=== PATIENT | male | born 1975 | race Caucasian/White ===

== ENCOUNTER 2016-10-22 18:30 | Emergency (ER) | payer OTHER ==
[~2016-10-22] VITALS: Ht 167.6 cm; Wt 65.8 kg
[~2016-10-22 18:30] MED LIST: TRAZ-144 PO
[2016-10-22 19:08] VITALS: BP 121/83
== END 2016-10-22 19:40 | disposition home or self-care (01) ==
LOC: ER 18:32
DX: M79.672 Pain in left foot (principal); M79.671 Pain in right foot; M25.572 Pain in left ankle and joints of left foot; M25.571 Pain in right ankle and joints of right foot; I87.2 Venous insufficiency (chronic) (peripheral); F32.9 Major depressive disorder, single episode, unspecified; F10.10 Alcohol abuse, uncomplicated; F17.210 Nicotine dependence, cigarettes, uncomplicated; Z72.0 Tobacco use
CPT/HCPCS: 99282; A4606; Z7610

== ENCOUNTER 2017-05-29 14:12 | Emergency (ER) | payer OTHER ==
[~2017-05-29] VITALS: Ht 170.2 cm; Wt 71.2 kg
--- NOTE | 2017-05-29 14:20 | NUR ---
[facility], C/O DIFFUSED CP, NON RADIATING X 3 DAYS. STATING "I'M JUST FEELING SUICIDAL RIGHT NOW" DENIES ANY PLAN. A/OX 4. BREATHING EVEN AND UNLABORED. NO SOB. VITALS STABLE. SAFETY AND COMFORT MEASURES IN PLACE. AWAITING MD ORDERS .
--- NOTE | 2017-05-29 14:30 | NUR ---
WINDOW SHADE CUTTER AND MOUNTER AT BEDSIDE FOR BLOOD DRAW.
[2017-05-29 14:40] LABS: BASOPHILS % (AUTO) 0.5 % (0.0-2.0); EOSINOPHILS % (AUTO) 0.3 % (0.0-6.0); HEMATOCRIT 37 % (39-51); HEMOGLOBIN 12.2 g/dL (13.5-17.5); LYMPHOCYTES # (AUTO) 1.7 /CMM (0.8-4.8); LYMPHOCYTES % (AUTO) 27.3 % (20.0-44.0); MEAN CORPUSCULAR HEMOGLOBIN 27 PG (26.0-33.0); MEAN CORPUSCULAR HGB CONC 33 g/dl (31.0-36.0); MEAN CORPUSCULAR VOLUME 82 fL (80-96); MONOCYTES # (AUTO) 0.5 /CMM (0.1-1.30); NEUTROPHILS # (AUTO) 4.1 /CMM (1.8-8.9); NEUTROPHILS % (AUTO) 63.9 % (43.0-81.0); PLATELET COUNT (AUTO) 234 /CMM (150-450); RDW COEFFICIENT OF VARIATION 15.1 (11.5-15.0); RED BLOOD CELL COUNT(AUTO) 4.53 MIL/uL (4.5-6.0); WHITE BLOOD COUNT (AUTO) 6.4 K/uL (4.3-11.0)
[2017-05-29 14:41] LABS: CALCIUM, SERUM 8.2 mg/dL (8.5-10.1); CARBON DIOXIDE 24 mmol/L (21-32); CHLORIDE 99 mmol/L (98-107); CREATININE 0.8 mg/dL (0.6-1.3); GLUCOSE 126 mg/dL (74-106); POTASSIUM 3.5 mmol/L (3.5-5.1); SODIUM SERUM 136 mmol/L (136-145); UREA NITROGEN, BLOOD 6 mg/dL (7-18)
[2017-05-29] MEDS ORDERED: LORA2TAB PO (14:44)
[2017-05-29] MEDS ORDERED: QUET300T2 PO (14:44)
[2017-05-29] MEDS ORDERED: DIVA500T2 PO (14:44)
[2017-05-29 14:49] LABS: ACETAMINOPHEN 0 ug/ml (10-30); ALANINE AMINOTRANSFERASE 41 U/L (12-78); ALBUMIN 3.9 g/dL (3.4-5.0); ALCOHOL, BLOOD 419 mg/dL (0-0); ALKALINE PHOSPHATASE 124 U/L (46-116); ASPARTATE AMINOTRANSFERASE 50 U/L (15-37); BILIRUBIN,DIRECT 0.1 mg/dL (0.0-0.2); BILIRUBIN,TOTAL 0.4 mg/dL (0.2-1.0); SALICYLATE 1.8 mg/dL (2.8-20.0); TOTAL PROTEIN, SERUM 7.5 g/dL (6.4-8.2); TROPONIN I < 0.017 ng/mL (0.00-0.056)
--- NOTE | 2017-05-29 15:05 | NUR ---
URINE OBTAINED AND SENT TO LAB.
[2017-05-29 15:22] LABS: APPEARANCE,URINE CLEAR (CLEAR); BILIRUBIN,URINE NEGATIVE (NEGATIVE); BLOOD, URINE 1+ Ery/uL (NEGATIVE); COLOR,URINE YELLOW (YELLOW); KETONES,URINE TRACE (NEGATIVE); LEUKOCYTE ESTERASE ,URINE NEGATIVE (NEGATIVE); NITRITE, URINE NEGATIVE (NEGATIVE); PROTEIN,URINE 2+ mg/dl (NEGATIVE); UGLUCOSE NEGATIVE (NEGATIVE); UROBILINOGEN,URINE 0.2 EU/dL (0.2)
[2017-05-29 15:24] LABS: BACTERIA,URINE Rare /HPF (None Seen); MUCUS,URINE Few /LPF (None Seen); SQUAMOUS EPITHELIAL CELL,UR Few /HPF (None Seen); WBC,URINE 0-2 /HPF (0-3)
--- NOTE | 2017-05-29 15:43 | NUR ---
PNEUMATIC PRESS HAND AT BEDSIDE.
--- NOTE | 2017-05-29 16:28 | NUR ---
patient's vitals remain stable, will continue to monitor.
--- NOTE | 2017-05-29 20:50 | NUR ---
MANDY/RN DE IONIZER OPERATOR CALLED FOR PSYCH EVAL. PRIMARY NURSE LEONIDAS NOTIFIED.
--- NOTE | 2017-05-29 21:19 | NUR ---
MANDY/RN AUGER SUPERVISOR HERE TO SEE PT.
--- NOTE | 2017-05-29 22:20 | NUR ---
PT PLACED ON HOLD AND ACCEPTED AT [facility].
--- NOTE | 2017-05-29 22:22 | NUR ---
TALKED TO KRISHNA ARCHER [facility] FOR TRANSPORT 25MINS
[2017-05-29 22:54] VITALS: BP 149/74
--- NOTE | 2017-05-29 22:54 | NUR ---
REPORT GIVEN TO TRANSPORT TEAM.
== END 2017-05-29 22:55 ==
LOC: ER 14:14
DX: R07.9 Chest pain, unspecified (principal); F10.129 Alcohol abuse with intoxication, unspecified; F32.9 Major depressive disorder, single episode, unspecified; G93.40 Encephalopathy, unspecified; F17.210 Nicotine dependence, cigarettes, uncomplicated; Z98.890 Other specified postprocedural states
CPT/HCPCS: 36415; 71010; 80048; 80076; 80305; 80329; 81001; 84484; 85025; 93005; 99285; A4606; G0480 ×2; Z7610; 81000-TC

== ENCOUNTER 2017-06-20 21:35 | Emergency (ER) | payer OTHER ==
[~2017-06-20] VITALS: Ht 172.7 cm; Wt 68.0 kg
[~2017-06-20 21:35] MED LIST changes: +DIVA500T2 PO; +LORA2TAB PO; +QUET300T2 PO
--- NOTE | 2017-06-20 21:37 | NUR ---
PT BIBRA TO ER BED 12. C/O SUICIDAL IDEATION BY HANGING HIMSELF. PT ADMITS TO DRINKING ALCOHOL. PLACED ON SI PRECAUTION. STABLE VITALS. AWAITING MD NELSON.
--- NOTE | 2017-06-20 21:50 | NUR ---
CAHRO DYE AT BEDSIDE FOR EVAL.
--- NOTE | 2017-06-20 22:09 | NUR ---
PAINTER AND DECORATOR APPRENTICE AT BEDSIDE FOR BLOOD DRAW.
[2017-06-20 22:31] LABS: BASOPHILS % (AUTO) 0.1 % (0.0-2.0); EOSINOPHILS % (AUTO) 0.6 % (0.0-6.0); HEMATOCRIT 41 % (39-51); HEMOGLOBIN 13.6 g/dL (13.5-17.5); LYMPHOCYTES # (AUTO) 1.6 /CMM (0.8-4.8); LYMPHOCYTES % (AUTO) 21.5 % (20.0-44.0); MEAN CORPUSCULAR HEMOGLOBIN 27 PG (26.0-33.0); MEAN CORPUSCULAR HGB CONC 33 g/dl (31.0-36.0); MEAN CORPUSCULAR VOLUME 81 fL (80-96); MONOCYTES # (AUTO) 0.4 /CMM (0.1-1.30); MONOCYTES % (AUTO) 5.9 % (2.0-12.0); NEUTROPHILS # (AUTO) 5.3 /CMM (1.8-8.9); NEUTROPHILS % (AUTO) 71.9 % (43.0-81.0); PLATELET COUNT (AUTO) 502 /CMM (150-450); RDW COEFFICIENT OF VARIATION 16.2 (11.5-15.0); RED BLOOD CELL COUNT(AUTO) 5.08 MIL/uL (4.5-6.0); WHITE BLOOD COUNT (AUTO) 7.4 K/uL (4.3-11.0)
[2017-06-20 22:35] LABS: APPEARANCE,URINE CLEAR (CLEAR); BILIRUBIN,URINE NEGATIVE (NEGATIVE); BLOOD, URINE NEGATIVE Ery/uL (NEGATIVE); COLOR,URINE YELLOW (YELLOW); KETONES,URINE NEGATIVE (NEGATIVE); LEUKOCYTE ESTERASE ,URINE NEGATIVE (NEGATIVE); NITRITE, URINE NEGATIVE (NEGATIVE); PH,URINE 5.5 (5.0-8.0); PROTEIN,URINE 1+ mg/dl (NEGATIVE); UGLUCOSE NEGATIVE (NEGATIVE); UROBILINOGEN,URINE 0.2 EU/dL (0.2)
[2017-06-20 22:41] LABS: BACTERIA,URINE None seen /HPF (None Seen); MUCUS,URINE Rare /LPF (None Seen); RBC,URINE NONE SEEN /HPF (0-2); SQUAMOUS EPITHELIAL CELL,UR Few /HPF (None Seen); WBC,URINE 0-2 /HPF (0-3)
[2017-06-20 22:44] LABS: CALCIUM, SERUM 8.8 mg/dL (8.5-10.1); CREATININE 0.9 mg/dL (0.6-1.3); POTASSIUM 3.3 mmol/L (3.5-5.1)
[2017-06-20 22:48] LABS: ALBUMIN 4.2 g/dL (3.4-5.0); BILIRUBIN,TOTAL 0.2 mg/dL (0.2-1.0); TOTAL PROTEIN, SERUM 8.2 g/dL (6.4-8.2)
[2017-06-20 22:49] LABS: SALICYLATE 1.9 mg/dL (2.8-20.0)
--- NOTE | 2017-06-20 23:24 | NUR ---
REPORT TO CHARGE NURSE CAROLYN FOR [facility].
--- NOTE | 2017-06-21 01:53 | NUR ---
PT SLEEPING IN NAD, PT ON MONITOR VSS, WILL CONTINUE TO MONITOR.
--- NOTE | 2017-06-21 03:59 | NUR ---
Patient is resting comfortably in bed with eyes closed. Easily aroused. VSS
--- NOTE | 2017-06-21 05:50 | NUR ---
PT SLEEPING IN NAD, EASILY ARROUSIBLE, MADE AWARE WILL CONTINUE TO MONITOR.
--- NOTE | 2017-06-21 08:16 | NUR ---
WAITING FOR CRISIS NURSE EVAL.
--- NOTE | 2017-06-21 20:39 | NUR ---
TALKED TO CHAN FROM [place] PT ADMITTED TO DR JOY AND PATIENT GOING TO ROOM 627-B REPORT GIVEN TO CHAN [phone]
--- NOTE | 2017-06-21 20:45 | NUR ---
CALLED [facility] FOR BLS TRANSPORT TO [facility]. ETA 45 MINUTES
[2017-06-21 23:01] VITALS: BP 120/77
== END 2017-06-21 23:02 ==
LOC: ER 21:39
DX: F10.10 Alcohol abuse, uncomplicated (principal); R45.851 Suicidal ideations; F32.9 Major depressive disorder, single episode, unspecified; F17.210 Nicotine dependence, cigarettes, uncomplicated
CPT/HCPCS: 36415 ×2; 80048; 80076; 80305; 80329; 81001; 85025; 99285; A4606; G0480 ×3; Z7610; 81000-TC